=== PATIENT | female | born 1990 | race Caucasian/White ===

== ENCOUNTER → 2017-01-28 | Outpatient (CLI) | payer BC ==
[~2017-01-28] MED LIST: PRENTAB26 PO
== END | disposition home or self-care (01) ==
LOC: C.PAPS 15:29
PROVIDERS: ATTEND Obstetrics & Gynecology
DX: Z01.419 Encounter for gynecological examination (general) (routine) without abnormal findings (principal); Z11.51 Encounter for screening for human papillomavirus (HPV)

== ENCOUNTER → 2017-12-12 | Outpatient (CLI) | payer BC | END | disposition home or self-care (01) | LOC: C.LABSPEC 15:34 → C.PATHSPEC 16:51 | PROVIDERS: ATTEND Obstetrics & Gynecology | DX: O03.9 Complete or unspecified spontaneous abortion without complication (principal) ==

== ENCOUNTER → 2017-12-12 | Outpatient (CLI) | payer BC | END | disposition home or self-care (01) | LOC: C.LAB1850 09:53 | PROVIDERS: ATTEND Obstetrics & Gynecology | DX: O20.0 Threatened abortion (principal) ==

== ENCOUNTER → 2017-12-19 | Outpatient (CLI) | payer BC | END | disposition home or self-care (01) | LOC: C.LABMFLN 11:52 | PROVIDERS: ATTEND Obstetrics & Gynecology | DX: O03.9 Complete or unspecified spontaneous abortion without complication (principal) ==

== ENCOUNTER → 2017-12-29 | Outpatient (CLI) | payer BC | END | disposition home or self-care (01) | LOC: C.LABMFLN 09:47 | PROVIDERS: ATTEND Obstetrics & Gynecology | DX: O03.9 Complete or unspecified spontaneous abortion without complication (principal) ==

== ENCOUNTER → 2018-01-07 | Outpatient (CLI) | payer BC | END | disposition home or self-care (01) | LOC: C.LABMFLN 10:49 | PROVIDERS: ATTEND Obstetrics & Gynecology | DX: O03.9 Complete or unspecified spontaneous abortion without complication (principal) ==

== ENCOUNTER 2018-11-09 07:18 | Inpatient (IN) ==
[2018-11-09] MEDS ORDERED: OXYTOCIN 30 UNITS/500 ML BAG IV PRN ×3 (07:44→15:09)
[2018-11-09] MEDS ORDERED: LACTATED RINGER'S 1,000 ML IV PRN (07:44)
[2018-11-09 08:04] LABS: Hematocrit (blood only) 33.1 % (37-47); Hemoglobin 11.2 g/dL (12.0-16.0); Mean Corpuscular Volume 92.2 fL (80-100); Mean Platelet Volume 10.7 fL (7.4-10.4); Platelet Count 197 K/uL (130-400); RDW Coefficient of Variation 13.3 % (11.5-14.5); RDW Standard Deviation 44.6 fL (36.4-46.3); Red Blood Count 3.59 M/uL (4.2-5.4); White Blood Count 8.95 K/uL (4.8-10.8)
[2018-11-09 08:13] LABS: Mean Corpuscular Hgb Conc 33.8 g/dL (32-36)
--- NOTE | 2018-11-09 08:36 | History & Physical Report ---
Date of Service November 09, 2018 Assessment & Plan (1) Intrauterine growth restriction (IUGR) affecting care of mother, third t rimester, single gestation: fetus category one. Unable to rom, so will need to start with pitocin. Patient tearful with this. She really does not want an epidural and is afraid if has pit will need one. discussed that just because needing pitocin, does not mean she needs an epidural. Tried to answer questions to best of my ability, she is very anxious as this is not like any of her other deliveres, both spontaneous, arrived complete and pushed out a baby. Anticipate arom at some point and . History of Present Illness Chief Complaint: inductuion for iugr Primary Care Provider: NO PCP Patient is a 28yowf with iup at 39 weeks who presents to labor and delivery for induction for iugr. Diagnosed around 28 weeks. Has been having twice weekly nsts, DVp and weekly dopplers and have all been normal. Last growth ultrasound was at 35 08/23 showed efw 13% and ac 5%. Has hx of ptd with second baby in 2014 at 35 weeks. Was taking pat this but d/c around 20 weeks secondary to injection site reactions. Has hx of melanoma in situ and placenta to be sent to path after . Has also had episodes of syncope in the with negative w/u. Patient's first baby at 39 weeks 6#2oz, and at 35 weeks 5#12oz labs--O+/ab-/pap neg/ri/rprnr/hepb-/hiv-/gc/ct-/gtt x 2 nl/gbs neg Allergies Allergy/AdvReac Type Severity Reaction Status Date / Time Bactrim Allergy Unknown HIVES Verified 12/10/17 12:17 cefaclor Allergy Unknown HIVES Verified 11/09/18 08:27 sulfamethoxazole Allergy Unknown HIVES Verified 11/09/18 08:27 trimethoprim Allergy Unknown HIVES Verified 11/09/18 08:27 Home Medications Home Medications Medication Instructions Recorded Confirmed Type PNV cmb#95-ferrous fumarate-FA 1 tab PO DAILY 11/08/18 11/08/18 History [] Patient History Medical History spontaneous labor with delivery (Resolved) Kidney stones Thyroid nodule [place] teeth removed Exercise-induced asthma Surgical History History of lumpectomy of left breast Social History Preferred Language: Serbian Communication Ability: Effective Beliefs That Will Affect Care: None marital status: Current Living Situation: Spouse and Family Current Living Situation Comment: spouse and 2 children Other Information That Helps Us Care for You: No Feels Safe at Home: Yes Safety Concerns: Feels Safe At This Time Smoking Status: Never smoker Hx Alcohol Use: No Hx Substance Use: No OB History g1--09/29, , 39 weeks, 6#2oz g2--10/31, , 35 weeks with ceasar, 5#12oz g3--12/03, 8 weeks, 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
--- NOTE | 2018-11-09 12:10 | Labor Progress Brief Note ---
Date of Service November 09, 2018 Subjective Patient getting more uncomfortable. srom at about 9:45 for clear fluid. Assessment & Plan (1) Intrauterine growth restriction (IUGR) affecting care of mother, third trimester, single gestation: fetus category one. will hold pit at 12. Expectant management at present. Will check cervix at 2. Physical Exam Constitutional: WD/WN, vitals as above Genitourinary: cx--deferred/declined toco--q2-3min, pit at 12 fm--130s with mod variability, accels present, rare variable Results & Data Vital Signs (Past 12 Hours) Vital Signs Temp Pulse Resp BP 11/09/18 11:53 58 L 111/70 11/09/18 10:54 64 110/63 11/09/18 09:44 36.7 C 63 20 111/70 11/09/18 08:53 64 112/75 11/09/18 07:54 36.4 C L 63 20 110/76 11/09/18 07:36 63 110/76
--- NOTE | 2018-11-09 14:12 | Labor Progress Brief Note ---
Date of Service November 09, 2018 Subjective uncomfortable and breathing through contractions Assessment & Plan (1) Intrauterine growth restriction (IUGR) affecting care of mother, third trimester, single gestation: Continue current management. fetus category one for the vast majority. anticipate . Physical Exam Constitutional: WD/WN, vitals as above Genitourinary: cx--/-1, still posterior toco--q2-3min, pit at 12 efm--130s with mod variability, accels to 150s, rare variable. Results & Data Vital Signs (Past 12 Hours) Vital Signs Temp Pulse Resp BP 11/09/18 13:46 36.6 C 11/09/18 13:45 68 105/58 L 11/09/18 12:50 76 123/75 11/09/18 11:53 58 L 111/70 11/09/18 11:45 36.7 C 20 11/09/18 10:54 64 110/63 11/09/18 09:44 36.7 C 63 20 111/70 11/09/18 08:53 64 112/75 11/09/18 07:54 36.4 C L 63 20 110/76 11/09/18 07:36 63 110/76
[2018-11-09] MEDS ORDERED: ePHEDrine sulfate 50 MG/ML AMP ONE (14:48)
[2018-11-09] MEDS ORDERED: fentaNYL 2MCG/ML ROPIV 1.25MG/ML 100 ML BAG EPI ONE (14:48)
[2018-11-09] MEDS ORDERED: BUPIVACAINE 0.25% 30 ML VIAL ONE (14:48)
[2018-11-09] MEDS ORDERED: fentaNYL citrate 100 MCG/2 ML VIAL ONE (14:48)
[2018-11-09] MEDS ORDERED: DIPHTHERIA/TETANUS/PERTUSSIS 0.5 ML SYR/VIAL IM ONE (15:09)
[2018-11-09] MEDS ORDERED: HYDROCORTISONE ACETATE 25 MG SUPP PR PRN (15:09)
[2018-11-09] MEDS ORDERED: OXYCODONE/ACETAMINOPHEN 5mg/325mg TAB PO PRN (15:09)
[2018-11-09] MEDS ORDERED: BENZOCAINE 20% AER SPR 82.5 GM CAN EXT PRN (15:09)
[2018-11-09] MEDS ORDERED: SUPERCREAM 0.870% 15 GM JAR EXT PRN (15:09)
[2018-11-09] MEDS ORDERED: ACETAMINOPHEN 325 MG TAB PO PRN (15:09)
[2018-11-09 16:38] LABS: Base Excess Cord Venous Blood -3.4 mEq/L (-7.7-1.9); Cord Venous Blood HCO3 22 mmol/L (18.4-26.8); Cord Venous Blood PCO2 39 mmHg (30.4-57.2); Cord Venous Blood PO2 20 mmHg (14.1-43.3); O2 Saturation Cord Venous Bld < 60.0 % (<68)
[2018-11-09 16:47] LABS: CO2 Cord Arterial Blood 50 mmHg (39.1-73.5)
[2018-11-09 16:47] LABS: Cord Venous Blood pH 7.36 (7.20-7.44)
[2018-11-09 16:48] LABS: Base Excess Cord Arterial Bld -3.6 mEq/L (-9-1.8); HCO3 Cord Arterial Blood 24 mmol/L (19.7-28.5); pH Cord Arterial Blood 7.29 (7.1-7.38)
--- NOTE | 2018-11-09 16:48 | Delivery Summary ---
DATE OF OPERATION: 11/09/2018 PREOPERATIVE DIAGNOSES: 1. Intrauterine at 39 and 0/7 weeks. 2. Intrauterine growth restrictions. POSTOPERATIVE DIAGNOSES: 1. Intrauterine at 39 and 0/7 weeks. 2. Intrauterine growth restrictions. PROCEDURES: 1. Pitocin augmentation. 2. Spontaneous rupture of membranes. 3. Normal spontaneous vaginal delivery. SURGEON: Anisa Sorenson MD ANESTHESIA: None. ESTIMATED BLOOD LOSS: 300 mL. DESCRIPTION OF PROCEDURE: The patient presented to labor and delivery for induction of labor for IUGR at 39 weeks. The patient's cervix was very posterior and 50% and I was unable to rupture the bag of water which was her desire for her induction. Therefore, we started Pitocin. Approximately an hour after starting Pitocin, she had spontaneous rupture of membranes for copious clear fluid. Her Pitocin was 12 milliunits at that time and was maintained on that throughout the rest of the labor. She eventually progressed quickly from 5 cm to complete and +2 to 3 station and pushed x2 to deliver a viable female in JOSELO presentation. The nose and mouth were bulb suctioned and the rest of the was then delivered without difficulty. It was delivered through a body cord. The infant was dried, suctioned again and placed on the maternal abdomen for drying and attention. The cord was clamped and cut, and cord blood and cord gases were obtained. Placenta was delivered spontaneously intact with a 3-vessel cord. Cervix, sulci, rectum, and perineum were examined and found to be intact. The placenta was sent for pathology, given IUGR and history of melanoma in situ. Apgars pending at the time of this dictation as well as weight. Hemostasis was obtained with dilute Pitocin and fundal massage. I attest to the content of the Intraoperative Record and any orders documented therein. Any exception s are noted below.
[2018-11-09] MEDS: IBUPROFEN 600 MG TAB PO PRN ×2 (19:42→23:41)
[2018-11-09] MEDS: DOCUSATE SODIUM 100 MG CAP PO SCH (23:51)
[2018-11-10] MEDS: IBUPROFEN 600 MG TAB PO PRN ×4 (03:40→15:37)
[2018-11-10 06:17] LABS: Hematocrit (blood only) 28.9 % (37-47); Hemoglobin 9.9 g/dL (12.0-16.0); Mean Corpuscular Hgb Conc 34.3 g/dL (32-36); Mean Corpuscular Volume 92.9 fL (80-100); Mean Platelet Volume 10.6 fL (7.4-10.4); Platelet Count 189 K/uL (130-400); RDW Coefficient of Variation 13.5 % (11.5-14.5); RDW Standard Deviation 45.6 fL (36.4-46.3); Red Blood Count 3.11 M/uL (4.2-5.4); White Blood Count 14.07 K/uL (4.8-10.8)
--- NOTE | 2018-11-10 06:23 | Obstetrical Progress Note ---
Date of Service <Konstantin Gutierrez - Last Filed: 11/10/18 06:23> November 10, 2018 Assessment & Plan <Konstantin Gutierrez - Last Filed: 11/10/18 06:23> (1) (spontaneous vaginal delivery): -vital signs reviewed and WNL -last Hgb 11.2 -Blood type: O+, GBS-, Rubella Immune -pt doing well clinically -encourage ambulation, monitor and control pain with motrin tylenol, cont regular diet, monitor lochia -cont encourage breast feeding -anticipate d/c tomorrow Subjective <Konstantin WilmarRoger Gutierrez - Last Filed: 11/10/18 06:23> 28 y/o PPD1 found in bed this morning in NAD. Reports no acute overnight events. Pt states that she has no pain other than appropriate soreness. Tolerating PO intake without N/V. Able to ambulate without issue. She is breast feeding without issue. No issues with voiding, no BM yet but passing gas. No other acute concerns or complaints. Review of Systems All systems reviewed & are unremarkable except as noted in HPI & below Physical Exam <Konstantin Gutierrez - Last Filed: 11/10/18 06:23> Constitutional WD/WN, vitals as above Respiratory normal respiratory effort, lungs clear to auscultation Cardiovascular RRR, no murmur, no edema Gastrointestinal (Abdomen) mild abd tenderness Fundus at U, please correlate with attending findings Skin no rashes, warm and dry Psychiatric A+Ox3, euthymic affect Lymphatic no LE swelling, no calf tenderness Results & Data <Konstantin WilmarRoger Gutierrez - Last Filed: 11/10/18 06:23> Vital Signs (Past 12 Hours) Vital Signs Temp Pulse Pulse Resp BP BP Pulse Ox 11/10/18 03:20 36.4 C L 68 16 99/63 L 98 11/09/18 23:35 36.8 C 62 16 100/68 98 11/09/18 19:00 36.9 C 74 18 100/65 11/09/18 18:32 36.7 C 18 11/09/18 18:30 67 117/66 Laboratory Results Laboratory Results - last 24 hr 11/09/18 11/09/18 11/09/18 07:54 16:14 16:15 WBC 8.95 RBC 3.59 L Hgb 11.2 L Hct 33.1 L MCV 92.2 MCH 31.2 MCHC 33.8 RDW Std Deviation 44.6 RDW Coeff of Jean Paul 13.3 Plt Count 197 MPV 10.7 H Cord ABG pH 7.29 Cord ABG pCO2 50 Cord ABG pO2 15.0 Cord ABG HCO3 24 Cord ABG Base Excess -3.6 Cord ABG O2 Sat < 60.0 Cord VBG pH 7.36 Cord VBG pCO2 39 Cord VBG pO2 20 Cord VBG HCO3 22 Cord VBG Base Excess -3.4 Cord VBG O2 Sat < 60.0 Barometric Pressure 728.9 729.1 Blood Gas Comments MEZA DERRICK 11/10/18 06:01 WBC 14.07 H RBC 3.11 L Hgb 9.9 L Hct 28.9 L MCV 92.9 MCH 31.8 MCHC 34.3 RDW Std Deviation 45.6 RDW Coeff of Jean [place] 13.5 Plt Count 189 MPV 10.6 H Cord ABG pH Cord ABG pCO2 Cord ABG pO2 Cord ABG HCO3 Cord ABG Base Excess Cord ABG O2 Sat Cord VBG pH Cord VBG pCO2 Cord VBG pO2 Cord VBG HCO3 Cord VBG Base Excess Cord VBG O2 Sat Barometric Pressure Blood Gas Comments Medications Administered Current Inpatient Medications Acetaminophen (Tylenol) 650 mg PO Q6H PRN PRN Reason: Pain/SIEGEL/Fever Stop: 12/09/18 15:08 Benzocaine (Dermoplast Pain Relieving [place]) 1 appln EXT PRN PRN PRN Reason: Perineal Discomfort Stop: 12/09/18 15:08 Cocaine HCl (Supercream 0.870%) 1 gm EXT BID PRN PRN Reason: Hemorrhoidal Inflammation Stop: 11/23/18 15:08 Docusate Sodium (Colace) 100 mg PO BID GARY Stop: 12/09/18 20:59 Last Admin: 11/09/18 23:51 Dose: 100 mg Documented by: Hydrocortisone (Anusol Hc) 25 mg IA BID PRN PRN Reason: Hemorrhoidal Inflammation Stop: 12/09/18 15:08 Oxytocin (Pitocin) 30 units in 500 mls @ 333.333 mls/hr IV .Q1H30M PRN; Protocol PRN Reason: Bleeding Control Stop: 12/09/18 07:43 Lactated Ringer's (Lr) 1,000 mls @ 125 mls/hr IV .Q8H PRN; Protocol PRN Reason: L&D Protocol Stop: 11/11/18 07:43 Last Infusion: 11/09/18 14:59 Dose: Infused Documented by: Oxytocin (Pitocin) 30 units in 500 mls @ 12 mls/hr IV .Q24H PRN; Protocol PRN Reason: Labor Induction/Augmentation Stop: 11/11/18 08:35 Last Titration: 11/09/18 17:05 Dose: Infused Documented by: Oxytocin (Pitocin) 30 units in 500 mls @ 333.333 mls/hr IV .Q1H30M PRN; Protocol PRN Reason: Bleeding Control Stop: 12/09/18 15:08 Ibuprofen (Motrin) 600 mg PO Q4H PRN PRN Reason: Pain/SIEGEL/Cramping/Fever Stop: 12/09/18 15:08 Last Admin: 11/10/18 03:40 Dose: 600 mg Documented by: Oxycodone/Acetaminophen (Percocet 5mg/325mg) 1 tab PO Q4H PRN PRN Reason: Pain not relieved by... Stop: 11/23/18 15:08 Prenat Multivit/Atmospheric Chemist/Iron/Folic Ac ( Vitamin) 1 tab PO QAM GARY Stop: 12/09/18 15:14 <Anisa Sorenson MD, FACOG - Last Filed: 11/10/18 07:49> Co-Signing Physician Notes Resident Physician Supervision Note: I interviewed and examined the patient. Discussed with Dr. Gutierrez and agree with findings and plan as documented in the note. Any exceptions or clarifications are listed here: Doing well. Routine pp care. ff/nt at 3 below u. Consider d/c tonight if baby d/c. Documented By: Anisa Sorenson MD, FACOG Resident Activity Tracking <Konstantin Gutierrez DO - Last Filed: 11/10/18 06:23> Resident Involvement: Resident Care Provided Care Provided: OB Delivery
[2018-11-10] MEDS: DOCUSATE SODIUM 100 MG CAP PO SCH ×2 (09:01→10:02)
[2018-11-10] MEDS: PRENATAL VITAMIN 1 TAB PO SCH ×3 (09:01→13:47)
== END 2018-11-10 16:40 | disposition home or self-care (01) | DRG 807 ==
LOC: 4S1 07:18 → 4S2 18:45

== ENCOUNTER 2020-12-07 07:36 | Inpatient (IN) ==
[2020-12-07] MEDS ORDERED: LACTATED RINGER'S 1,000 ML IV PRN (07:46)
[2020-12-07] MEDS ORDERED: OXYTOCIN 30 UNITS/500 ML BAG IV PRN ×3 (07:46→15:24)
--- NOTE | 2020-12-07 08:21 | History & Physical Report ---
Date of Service December 07, 2020 Assessment & Plan (1) Encounter for induction of labor: (2) with 39 completed weeks gestation: Plan: Does not need cervical ripening. Begin pitocin induction, arom when indicated, epidural on demand. Fetus category one. Anticipate . Admission and Anticipated Discharge Date Admission Date: December 07, 2020 History of Present Illness Chief Complaint: induction Primary Care Provider: Jani Vidal DO Patient is a 30yowg with iup at 39 weeks who presents for elective induction for hx of rapid labors. this has been complicated by varicosities in the rlq and right labia/vulva. She has a hx of iugr in the past but US done 11/22 showed aga. Hx ecasar but allergic to [place]. +fm. occasional contraction. no lof/vb. labs--O+/ab-/ri/rprnr/hepb-/hiv-/gc/ct-/ gtt at 16 week failed, repeat 21 weeks passed and passed at 28 weeks/gbs neg/ declined cf/sma/afp/genetics/gbs neg Allergies Allergy/AdvReac Type Severity Reaction Status Date / Time Bactrim Allergy Unknown HIVES Verified 12/10/17 12:17 cefaclor Allergy Unknown HIVES Verified 12/07/20 08:20 sulfamethoxazole Allergy Unknown HIVES Verified 12/07/20 08:20 trimethoprim Allergy Unknown HIVES Verified 12/07/20 08:20 hydroxyprogesterone Allergy Hives Verified 12/07/20 08:21 [From [place]] Home Medications Medication Instructions Recorded Confirmed Type prenat.vits,farshad,wix-lpfa-icfxf 1 tab PO DAILY 05/25/20 12/06/20 History Jobst Stockings 1 ea .ROUTE .COMPLEX #1 ea 07/28/20 12/06/20 Rx Patient History Medical History Acute flank pain Encounter for induction of labor Exercise-induced asthma Intrauterine growth restriction (IUGR) affecting care of mother, third trimester, single gestation Kidney stones Melanoma in situ Multiple thyroid nodules No significant past medical history spontaneous labor with delivery uterine contractions in third trimester, antepartum Spontaneous Thyroid nodule Weight loss Surgical History History of lumpectomy of left breast [place] teeth removed Family History Other No pertinent family history Denies family history of Ovarian cancer Breast cancer Colorectal cancer Social History Smoking Status: Never smoker Hx Alcohol Use: No Hx Substance Use: No Preferred Language: Faroese Communication Ability: Effective Visual Impairment: No Limitations Hearing Ability: Normal Clinical Trial Manager Required: No Beliefs That Will Affect Care: None marital status: marital status details: Thomas (37) [phone] Current Living Situation: Spouse and Family Current Living Situation Comment: spouse and 3 children, 1 dog current occupational status: employed 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 Physical Exam Constitutional: WD/WN, vitals as above Neck: trachea midline, no thyromegaly Gastrointestinal (Abdomen): soft, nt , nd Psychiatric: A+Ox3, euthymic affect Genitourinary: cx--3.5/75/-2/soft/mid toco--mics efm--130s with mod variability, accels to 150s, no decels Results & Data ([facility]) Vital Signs (Past 12 Hours) Vital Signs Temp Pulse Resp BP 12/07/20 07:53 36.4 C L 64 20 127/81 Code Status & VTE Plan VTE Prophylaxis Plan VTE Prophylaxis will be ordered: No Coding Level of Care Code None Diagnoses Encounter for induction of labor Z34.90 with 39 completed weeks gestation Z3A.39
[2020-12-07 08:31] LABS: Hematocrit (blood only) 34.6 % (37-47); Hemoglobin 11.6 g/dL (12.0-16.0); Mean Corpuscular Hemoglobin 31.8 pg (25-34); Mean Corpuscular Hgb Conc 33.5 g/dL (32-36); Mean Corpuscular Volume 94.8 fL (80-100); Mean Platelet Volume 11.2 fL (7.4-10.4); Platelet Count 179 K/uL (130-400); RDW Coefficient of Variation 13.3 % (11.5-14.5); RDW Standard Deviation 46.1 fL (36.4-46.3); Red Blood Count 3.65 M/uL (4.2-5.4); White Blood Count 8.48 K/uL (4.8-10.8)
[2020-12-07] MEDS ORDERED: ePHEDrine sulfate 50 MG/ML AMP ONE (14:53)
[2020-12-07] MEDS ORDERED: BUPIVACAINE 0.25% 30 ML VIAL ONE (14:53)
[2020-12-07] MEDS ORDERED: SODIUM CHLORIDE 0.9% INJ 10 ML VIAL ONE (14:53)
[2020-12-07] MEDS ORDERED: fentaNYL citrate 100 MCG/2 ML VIAL ONE (14:53)
[2020-12-07] MEDS ORDERED: fentaNYL 2MCG/ML ROPIVACAINE 1.25MG/ML 100 ML BAG EPI ONE (14:54)
[2020-12-07] MEDS ORDERED: ONDANSETRON INJ 2 MG/ML 2 ML VIAL IV PRN (15:13)
--- NOTE | 2020-12-07 15:20 | Delivery Summary ---
Vaginal Delivery Summary Date of Service December 07, 2020 Vaginal Delivery Summary Patient is a 30-year-old 6 para 3-0-2-3 white female who presents for induction of labor because of history of rapid labors and delivery in the past. Pitocin augmentation of her contractions was begun and membranes were ruptured at 5 cm dilation. She progressed to full dilation and pushed effectively over intact perineum for delivery of a viable female . After the head was delivered the rest of the delivered easily and was placed on the mother's abdomen for further attention and drying. The infant was vigorous and moving all 4 limbs. After the cord was clamped and cut the placenta was expressed intact with a three-vessel cord. Perineum was intact. bleeding was controlled with dilute Pitocin. Estimated blood loss was 100 cc. Mother and infant were doing well after delivery. This was an unmedicated . [facility] [place] Vaginal Delivery Charge Vaginal Delivery Codes: 61600 global code for the antepartum, delivery, and post- Delivery Type Details: [facility]
[2020-12-07] MEDS ORDERED: DIPHTHERIA/TETANUS/PERTUSSIS 0.5 ML SYR/VIAL IM ONE (15:24)
[2020-12-07] MEDS ORDERED: SUPERCREAM 0.870% 15 GM JAR EXT PRN (15:24)
[2020-12-07] MEDS ORDERED: HYDROCORTISONE ACETATE 25 MG SUPP PR PRN (15:24)
[2020-12-07] MEDS ORDERED: [UNRECOGNIZED DRUG - OTHER] SCH (15:24)
[2020-12-07] MEDS ORDERED: BENZOCAINE 20% AER SPR 82.5 GM CAN EXT PRN (15:24)
[2020-12-07] MEDS ORDERED: ACETAMINOPHEN 325 MG TAB PO PRN (15:24)
[2020-12-07] MEDS: IBUPROFEN 600 MG TAB PO PRN ×2 (16:56→20:49)
[2020-12-07] MEDS: DOCUSATE SODIUM 100 MG CAP PO SCH (20:50)
[2020-12-08] MEDS: IBUPROFEN 600 MG TAB PO PRN ×3 (03:36→11:20)
--- NOTE | 2020-12-08 06:50 | Obstetrical Progress Note ---
Date of Service <Maria E Miranda MD - Last Filed: 12/08/20 07:35> December 08, 2020 Assessment & Plan <Maria E Miranda MD - Last Filed: 12/08/20 07:35> (1) Encounter for care and examination after delivery: Patient is stable, routine care -encourage ambulation -pain control as needed, regular diet - -Rh+, RI, GBS- -review labs -d/c discussed with patient. Can be d/c'd PM today. Pt is amenable to this (2) Supervision of normal intrauterine in multigravida: (3) with 39 completed weeks gestation: <Maame Gaines MD, FACOG - Last Filed: 12/08/20 07:50> (1) Encounter for care and examination after delivery: (2) Supervision of normal intrauterine in multigravida: (3) with 39 completed weeks gestation: Subjective <Maria E Miranda MD - Last Filed: 12/08/20 07:35> 30 y/o female who is now PPD #1 following spontaneous vaginal delivery at 39 weeks. Reports feeling well overall this morning. + cramping with nursing, 2/10 pain well managed on analgesics. Voiding +. Tolerating meals well and able to ambulate. + passing gas but denies bowel movements. Minimal lochia this morning. . Review of Systems Denies fever, chills, sweats Denies shortness of breath, difficulty breathing, chest pain, palpitations, chest pressure. Denies breast pain. Denies dysuria. Denies headache or changes in vision Review of Systems All systems reviewed & are unremarkable except as noted in HPI & below Physical Exam <Maria E Miranda MD - Last Filed: 12/08/20 07:35> General: Alert, oriented. No acute distress. Cardiac: Regular rate and rhythm, no murmurs/rubs/gallops. Respiratory: Clear to auscultation bilaterally a/p, no wheezes/rales/rhonchi. No increased work of breathing. Symmetrical chest rise. No respiratory distress. Abdomen: Soft, nontender, nondistended. Bowel sounds present. Uterus: Uterine fundus firm, palpable 6 cm below umbilicus. Lower Extremities: No lower extremity edema or swelling. No deep calf pain. Luci's negative bilaterally.. Results & Data ([facility]) <Maria E Miranda MD - Last Filed: 12/08/20 07:35> Vital Signs (Past 12 Hours) Vital Signs Temp Pulse Resp BP 12/08/20 03:44 36.4 C L 68 18 116/72 12/08/20 00:00 36.4 C L 60 18 118/72 12/07/20 19:30 36.5 C 64 16 122/77 <Maame Gaines MD, FACOG - Last Filed: 12/08/20 07:50> Co-Signing Physician Notes Resident Physician Supervision Note: I interviewed and examined the patient. Discussed with Dr. Miranda and agree with findings and plan as documented in the note. Any exceptions or clarifications are listed here: [None] Documented By: Maame Gaines MD, FACOG Resident Activity Tracking <Maria E Miranda MD - Last Filed: 12/08/20 07:35> Resident Involvement: Resident Care Provided Care Provided: OB Delivery
[2020-12-08 07:01] LABS: Hemoglobin 10.8 g/dL (12.0-16.0); Mean Corpuscular Hemoglobin 31.2 pg (25-34); Mean Corpuscular Hgb Conc 32.7 g/dL (32-36); Mean Corpuscular Volume 95.4 fL (80-100); Mean Platelet Volume 11.2 fL (7.4-10.4); Platelet Count 192 K/uL (130-400); RDW Coefficient of Variation 13.5 % (11.5-14.5); RDW Standard Deviation 46.7 fL (36.4-46.3); Red Blood Count 3.46 M/uL (4.2-5.4); White Blood Count 9.95 K/uL (4.8-10.8)
[2020-12-08] MEDS ORDERED: oxyCODONE/ACETAMINOPHEN 5mg/325mg TAB PO PRN (07:27)
[2020-12-08] MEDS: DOCUSATE SODIUM 100 MG CAP PO SCH (07:55)
[2020-12-08] MEDS ORDERED: PRENATAL VITAMIN 1 TAB PO SCH (08:00)
[2020-12-08] MEDS ORDERED: NON-FORMULARY MEDICATION (Prenat.Vits,Cal,Min-Iron-Folic tablet) PO SCH (09:00)
[2020-12-08] MEDS ORDERED: bisacodyL 5 MG TABEC PO SCH (20:00)
[2020-12-09] MEDS ORDERED: bisacodyL 10 MG SUPP PR PRN (06:00)
== END 2020-12-08 16:00 | disposition home or self-care (01) | DRG 807 ==
LOC: 4S1 07:36 → 4S2 17:25
DX: O09.293 Supervision of pregnancy with other poor reproductive or obstetric history, third trimester; O22.13 Genital varices in pregnancy, third trimester; Z37.0 Single live birth; Z87.51 Personal history of pre-term labor; Z3A.39 39 weeks gestation of pregnancy